=== PATIENT | male | born 1975 | race Caucasian/White ===

== ENCOUNTER 2020-08-26 13:32 | Emergency (ER) | payer MEDICAID, SELFPAY ==
[2020-08-26 13:35] VITALS: BP 156/110; PULSE 76; RESP 16; TEMP 36.6; O2SAT 96; BMI 37.3
--- NOTE | 2020-08-26 14:10 | EKG12_ITS ---
Test Reason : Blood Pressure : / mmHG Vent. Rate : 064 BPM Atrial Rate : 064 BPM P-R Int : 138 ms QRS Dur : 100 ms QT Int : 392 ms P-R-T Axes : -12 001 007 degrees QTc Int : 404 ms Normal sinus rhythm Normal ECG Confirmed by PARKER CHRISTIANSON, ANDREA ([id number]), film or videotape editor GONZALO LIVINGSTON ([id number]) on 08/28/2020 10:06:24 AM Referred By: GUY Confirmed By:ANDREA CANALES MD
--- NOTE | 2020-08-26 14:11 | EX.ED.DYSGE1 ---
HPI History of Present Illness Chief Complaint: Suicidal Informant: patient Narrative Narrative: Patient states he is suicidal. He is felt this way for a couple of days. He is tired of his drug use. He normally uses meth. His last use was about 4 to 5 days ago. He states he has overdosed in the past but has not taken any pills recently. He has never been admitted to a psychiatric hospital before. He states he has had a heart attack in the past. He is on no home medications. [facility] Medical History (Updated 08/26/20 @ 17:[address] Chad De Leon MD) Anxiety Depression Myocardial infarct Substance abuse Home Medications NK 08/26/20 [History Last Taken Unknown] Allergy/AdvReac Type Severity Reaction Status Date / Time ibuprofen Allergy Swelling Verified 08/26/20 13:34 ketorolac [From Toradol] Allergy Swelling Verified 08/26/20 13:34 Social History Smoking Status: Current every day smoker tobacco type: cigarettes ROS ROS ED Constitutional Constitutional ED: Denies chills or fever(s) Eyes Eyes: Denies blurry vision, change in vision or diplopia ENT ENT ED: Denies ear pain, rhinorrhea or sore throat Cardiovascular Cardiovascular: Denies chest pain or palpitations Respiratory/Chest Respiratory/Chest: Denies cough, dyspnea or sputum Gastrointestinal Gastrointestinal: Denies abdominal pain, diarrhea, nausea or vomiting Genitourinary Genitourinary ED: Denies dysuria, hematuria or urinary frequency Musculoskeletal Musculoskeletal: Denies back pain or neck pain Integumentary Denies change in pigmentation or rash Neurologic Neurologic: Denies headache(s), numbness or weakness Psychiatric Psychiatric: Reports suicidal ideation Endocrine Endocrinology: Denies polydipsia or polyuria EXAM Physical Exam Const Vital Signs: 08/26/20 13:35 08/26/20 14:22 08/26/20 15:03 Temperature 97.9 F Temperature Source Temporal Pulse Rate 76 Respiratory Rate 16 22 H 18 Blood Pressure 156/110 H Blood Pressure Mean 125 Pulse Ox 96 Oxygen Delivery Method Room Air Room Air 08/26/20 16:14 Temperature Temperature Source Pulse Rate Respiratory Rate 20 H Blood Pressure Blood Pressure Mean Pulse Ox Oxygen Delivery Method Positive well nourished and well developed General Appearance ED: well developed and NAD HEENT Reports moist mucous membranes normocephalic and atraumatic; Negative for tenderness Eyes PERRL and EOMs intact bilaterally Neck supple and no JVD Chest Wall Chest: Negative for tenderness Resp normal respiratory effort and clear to auscultation bilaterally Effort and Inspection: Negative for respiratory distress Cardio regular rate, regular rhythm and no murmurs Rate: regular rate Rhythm: regular rhythm GI soft to palpation, non-tender and non-distended Palpation: soft Back/Spine no CVA tenderness and no thoracic nor lumbar tenderness Cervical Spine: Negative for cervical spine tenderness Extremity normal to inspection and full ROM General Extremety ED: Negative for tenderness Neuro oriented x3, CN's II-XII intact bilaterally and no sensory deficits noted Sensorium / Orientation: awake and alert Motor Exam: strength 5/5 throughout Psych Psych Narrative: Patient does voice suicidal thoughts. His affect is flat. Skin no rashes or lesions noted MDM MDM MDM Narrative Medical decision making narrative: The patient screening laboratory examinations are negative. His toxicology screen had cocaine, cannabinoids and amphetamines. The manager of case management evaluated this patient and he is accepted at [facility] for psychiatric care Lab Data Labs: Laboratory Results - last 24 hr 08/26/20 08/26/20 08/26/20 14:30 14:30 14:30 WBC 8.5 RBC 4.77 Hgb 13.8 Hct 43.2 MCV 90.6 MCH 28.9 MCHC 31.9 L RDW Std Deviation 46.3 H RDW Coeff of Amy 13.7 Plt Count 382 MPV 9.5 Immature Gran % (Auto) 0.500 Neut % (Auto) 71.8 H Lymph % (Auto) 15.4 L [place] % (Auto) 7.4 Eos % (Auto) 4.5 Baso % (Auto) 0.4 Absolute Neuts (auto) 6.1 Absolute Lymphs (auto) 1.31 Nucleated RBC % 0 Sodium 140 Potassium 3.5 Chloride 106 Carbon Dioxide 28.0 Anion Gap 6 BUN 11 Creatinine 0.97 Estim Creat Clear Calc 105.56 Est GFR (MDRD) Af Amer 107 Est GFR (MDRD) Non-Af 89 BUN/Creatinine Ratio 11.3 Glucose 116 H Calcium 8.2 L Total Bilirubin 0.40 AST 18 ALT 30 Alkaline Phosphatase 60 Total Creatine Kinase 159 Total Protein 6.8 Albumin 3.1 L Globulin 3.7 Albumin/Globulin Ratio 0.8 L Urine Color Urine Clarity Urine pH Ur Specific [place] Urine Protein Urine Glucose (UA) Urine Ketones Urine Occult Blood Urine Nitrite Urine Bilirubin Urine Urobilinogen Ur Leukocyte Esterase Urine RBC Urine WBC Ur Squamous Epith Cells Urine Bacteria Urine Mucus Urine Opiates Screen Urine Methadone Screen Ur Barbiturates Screen Ur Phencyclidine Scrn Ur Amphetamines Screen U Methamphetamin-MDMA U Benzodiazepines Scrn Urine Cocaine Screen U Cannabinoids Screen Ur Drug Screen Comment Ethyl Alcohol < 3.0 08/26/20 08/26/20 14:55 14:55 WBC RBC Hgb Hct MCV MCH MCHC RDW Std Deviation RDW Coeff of Amy Plt Count MPV Immature Gran % (Auto) Neut % (Auto) Lymph % (Auto) [place] % (Auto) Eos % (Auto) Baso % (Auto) Absolute Neuts (auto) Absolute Lymphs (auto) Nucleated RBC % Sodium Potassium Chloride Carbon Dioxide Anion Gap BUN Creatinine Estim Creat Clear Calc Est GFR (MDRD) Af Amer Est GFR (MDRD) Non-Af BUN/Creatinine Ratio Glucose Calcium Total Bilirubin AST ALT Alkaline Phosphatase Total Creatine Kinase Total Protein Albumin Globulin Albumin/Globulin Ratio Urine Color Yellow Urine Clarity Clear Urine pH 6.0 Ur Specific [place] 1.020 Urine Protein 30 H Urine Glucose (UA) Normal Urine Ketones 5 H Urine Occult Blood 10 H Urine Nitrite Negative Urine Bilirubin Negative Urine Urobilinogen 1 H Ur Leukocyte Esterase 25 H Urine RBC 0 SEEN Urine WBC 0-5 SEEN Ur Squamous Epith Cells 0-5 SEEN Urine Bacteria RARE Urine Mucus 1+ Urine Opiates Screen NEGATIVE Urine Methadone Screen NEGATIVE Ur Barbiturates Screen NEGATIVE Ur Phencyclidine Scrn NEGATIVE Ur Amphetamines Screen POSITIVE H U Methamphetamin-MDMA NEGATIVE U Benzodiazepines Scrn NEGATIVE Urine Cocaine Screen POSITIVE H U Cannabinoids Screen POSITIVE H Ur Drug Screen Comment Ethyl Alcohol EKG Initial EKG: Comments: Sinus rhythm with rate of 64. No ischemia. QTc 404, IL interval 138 Discharge Plan Triage Chief Complaint: Suicidal ED Provider: Chad De Leon Dx/Rx/DC Orders Clinical Impression: Suicidal ideation, Polysubstance abuse Prescriptions: No Action NK RF: 0 Primary Care Provider: Care Physician,No Primary Referrals: Care Physician,No Primary [Primary Care Provider] - Disposition Disposition: Transfer to another type HCF Discharge Location: [facility]
--- NOTE | 2020-08-26 14:13 | CM.ED ---
Addendum entered by Myranda Smith 08/26/20 14:45: Informed by registration, patient has insurance through [facility]. This worker to complete assessment. Staff updated. Original Note: SOCIAL WORK Discussed case with Dr. De Leon, patient is self-pay. Patient with suicidal ideation and recent meth use. Crisis to assess once medically cleared. Chava Smith, BUTTON BREAKER OPERATOR, LAB AIDE
[2020-08-26 14:22] VITALS: RESP 22
[2020-08-26 14:46] LABS: Absolute Lymphocyte Count 1.31 X10^3/uL (0.83-4.51); Absolute Neutrophil Count 6.1 X10^3/uL (2.0-7.7); Basophil# 0.03 X10^3/uL; Basophil% 0.4 % (0-1); Eosinophil# 0.38 X10^3/uL; Eosinophils% 4.5 % (0-5); Hematocrit 43.2 % (40-54); Hemoglobin 13.8 g/dL (13.0-16.5); Lymphocyte # 1.31 X10^3/ul (0.83-4.51); Lymphocyte % 15.4 % (19-41); Mean Corp Hgb Conc 31.9 g/dL (32-36); Mean Corpuscular Hgb 28.9 pg (27.0-32.0); Mean Corpuscular Volume 90.6 fL (80-94); Mean Platelet Vol. 9.5 fl (6.2-12.0); Monocyte# 0.63 X10^3/uL; Monocyte% 7.4 % (0-10); NRBC Flagged by Analyzer 0 % (0-5); Neutrophil # 6.11 X10^3/uL (2.7-7.7); Neutrophil % 71.8 % (47-70); Platelet Count 382 K/mm3 (150-450); RBC Distribution Width CV 13.7 % (11.6-14.6); RBC Distribution Width SD 46.3 fl (35.1-43.9); Red Blood Count 4.77 M/mm3 (4.6-6.2); White Blood Count 8.5 K/mm3 (4.4-11.0)
[2020-08-26 15:03] VITALS: RESP 18
[2020-08-26 15:03] LABS: ALB/GLOB Ratio 0.8 RATIO (0.9-2.4); AST(SGOT) 18 U/L (15-37); Alanine Aminotransfer ALT/SGPT 30 U/L (16-61); Albumin, Serum 3.1 g/dL (3.2-5.0); Alkaline Phosphatase 60 U/L (45-117); Anion Gap 6 (5-15); BUN 11 mg/dL (7-18); BUN/Creat Ratio 11.3 RATIO (10-20); CPK Total, Creatine Kinase 159 U/L (39-308); Calcium,Total 8.2 mg/dL (8.5-10.1); Chloride 106 mmol/L (98-107); Creatinine, Serum 0.97 mg/dL (0.70-1.30); EST Glomerular Filtration Rate 89 mL/min (>60); Est Glom Filt Rate - Afr Amer 107 mL/min (>60); Estimated Creatinine Clearance 105.56 ml/min; Globulin 3.7 g/dL (2.2-4.2); Glucose 116 mg/dL (74-106); Potassium 3.5 mmol/L (3.5-5.1); Protein, Total 6.8 g/dL (6.4-8.2); Sodium Level 140 mmol/L (136-145)
[2020-08-26 15:07] LABS: Alcohol, Blood (Medical)-Serum < 3.0 mg/dL
[2020-08-26 15:07] LABS: Red Blood Cells-Urine 0 SEEN /hpf (0-5)
[2020-08-26 15:14] LABS: Color, Urine Yellow (Yellow); Glucose, Dipstick Normal (Normal); Ketone-Dipstick 5 mg/dl (Negative); Leukocyte Esterase-Dipstick 25 /ul (Negative); Nitrite-Dipstick Negative (Negative); Occult Blood-Urine 10 /ul (Negative); Protein-Dipstick 30 mg/dl (Negative); Urine Bilirubin Dipstick Negative (Negative); Urine Clarity Clear (Clear); Urine Urobilinogen 1 mg/dl (Normal)
[2020-08-26 15:22] LABS: Bacteria RARE /hpf (None Seen); Mucous, Urine 1+ /hpf (<or=2+); Squamous Epithelial Cells - UA 0-5 SEEN /hpf (0-5); White Blood Cells 0-5 SEEN /hpf (0-5)
--- NOTE | 2020-08-26 15:39 | CM.ED ---
SOCIAL WORK ASSESSMENT Referral Source: Dr. 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 Patient with suicidal ideation with plan to walk into traffic. Patient with history of meth use. Marital/Social History: Living Situation: Homeless, stay with friends Support/Resources: ex-girlfriend who is present with patient History: None Education and Employment History: 10th grade, unemployed Mental Health Treatment/History: Depression, anxiety. Patient reports undiagnosed. Triggers/Stressors: pills Coping Skills: None Abuse Issues: Patient denies any history of emotional, physical or sexual abuse. Substance Abuse History: Patient admits to use of meth and marijuana. Patient reports desires to stop use. Risk to Self/Others: Suicidal- Patient reports suicidal ideation. Patient with prior history of attempt by overdose. Patient reports plan to walk into traffic. Homicidal- Patient denies any homicidal ideation. Violence- None Mental Status Exam: Orientation- A&Ox3 Memory: fair Appearance/General Behavior: disheveled, calm Mood/Affect: flat, depressed, anxious Communication Pattern: responds to questions Thought Process: appropriate General Intellectual Functioning: Average Judgement: poor Assessment Met with patient and support person in room. Sitter protocol in place. Introduced role and reason for referral. Patient reports suicidal ideation with plan to walk into traffic. Patient reports prior history of attempt a few years ago by intentional overdose. Patient admits to use of meth and marijuana. Patient reports desires to stop use. Patient calm and cooperative with this worker. Patient became tearful when speaking of sister who . Patient states I sometimes talk to her, go sleep on her grave. Emotional support provided. Support person in room is Nayana Sanches [phone]. Per Nayana, concerned for patient's safety and believes patient would benefit from hospitalization. Nayana reports he's never been diagnosed and I believe there is more going on. Patient gave permission for Nayana to be informed of status. Patient aware of [place]. Collaboration with Dr. De Leon. Plan for inpatient hospitalization-dual diagnosis. This worker to facilitate placement. Plan: Referral to inpatient psych-dual diagnosis Chava Smith, RESIDENTIAL SPECIALIST, LICENSED PHYSICAL THERAPIST ASSISTANT
[2020-08-26 15:47] LABS: Amphetamine Urine VISTA POSITIVE (<1000 ng/mL); Barbiturate Urine VISTA NEGATIVE (< 200 ng/mL); Benzodiazepine Urine VISTA NEGATIVE (< 200 ng/mL); Cocaine Urine VISTA POSITIVE (< 300 ng/mL); Ecstacy Urine VISTA NEGATIVE (< 500 ng/mL); Methadone Urine VISTA NEGATIVE (< 300 ng/mL); PCP Urine VISTA NEGATIVE (< 25 ng/mL); THC Urine VISTA POSITIVE (< 50 ng/mL); Vista UDS pH Range 6
--- NOTE | 2020-08-26 15:59 | CM.ED ---
SOCIAL WORK Referral called and faxed to [facility]. Chava Smith, MACHINE CRATER, ACTUARIAL SCIENCE TEACHER
[2020-08-26 16:14] VITALS: RESP 20
--- NOTE | 2020-08-26 17:00 | CM.ED ---
SOCIAL WORK Call to [facility] to check on status of referral. Referral being reviewed at this time. Awaiting call back. Patient has been updated. Chava Smith MSW, MISSILE PAD MECHANIC
--- NOTE | 2020-08-26 17:22 | CM.ED ---
SOCIAL WORK Patient accepted to [facility] by Dr. Roberts to the [facility]. Nurse to call report to . [employer]ber Goods Supervisor to set up transport. Patient updated. Chava Smith MSW, PROFESSOR OF ARCHAEOLOGY
--- NOTE | 2020-08-26 17:32 | NURSING ---
CALLED [facility], TALKED TO [facility]. ETA IS 30 MIN
[2020-08-26 17:54] VITALS: BP 165/102; PULSE 86; RESP 18; TEMP 36.6; O2SAT 98
== END 2020-08-26 18:45 | disposition other institution (70) ==
PROVIDERS: Emergency Provider Emergency Medicine
DX: R45.851 Suicidal ideations (principal); F19.10 Other psychoactive substance abuse, uncomplicated; F17.210 Nicotine dependence, cigarettes, uncomplicated
CPT/HCPCS: 80053; 80307; 81001; 82077; 82550; 85025; 87426; 93005; 99285